=== PATIENT | female | born 1950 | race Caucasian/White ===

== ENCOUNTER 2017-12-05 06:01 | Observation (INO) | payer BC, MEDICARE ==
[2017-12-04 11:31] LABS: BASOPHILS # (AUTO) 0.1 (0.0-0.1); BASOPHILS % 0.7 % (0.0-1.0); EOSINOPHILS # (AUTO) 0.1 (0.0-0.4); EOSINOPHILS % 1.6 % (0.0-6.0); HEMATOCRIT 36.9 % (34.2-44.1); HEMOGLOBIN 12.2 g/dL (12.0-16.0); LYMPHOCYTES # (AUTO) 2.6 (1.0-3.2); LYMPHOCYTES % 34.3 % (18.0-39.1); MEAN CORPUSCULAR HEMOGLOBIN 29.2 pg (28-32); MEAN CORPUSCULAR HGB CONC 33.1 g/dL (31-35); MEAN CORPUSCULAR VOLUME 88.3 fL (81-99); MONOCYTES # (AUTO) 0.7 (0.2-0.8); MONOCYTES % 8.8 % (4.4-11.3); NEUTROPHILS # (AUTO) 4.1 (2.1-6.9); NEUTROPHILS % 54.3 % (38.7-80.0); PLATELET COUNT 268 x10e3/uL (140-360); RED BLOOD COUNT 4.18 x10e6/uL (3.6-5.1); RED CELL DISTRIBUTION WIDTH 12.8 % (11.7-14.4)
[2017-12-04 11:43] LABS: INR 1.04; PARTIAL THROMBOPLASTIN TIME 29.9 seconds (23.8-35.5); PROTHROMBIN TIME 12.8 seconds (11.9-14.5)
[2017-12-04 11:50] LABS: ANION GAP 15.8 mmol/L (8-16); BLOOD UREA NITROGEN 20 mg/dL (7-26); BUN/CREATININE RATIO 24 (6-25); CALCIUM 9.7 mg/dL (8.4-10.2); CARBON DIOXIDE 25 mmol/L (22-29); CHLORIDE 105 mmol/L (98-107); CREATININE, SERUM 0.83 mg/dL (0.57-1.11); EST GLOMERULAR FILTRATION RATE > 60 ML/MIN (60-); GLUCOSE 93 mg/dL (74-118); POTASSIUM 3.8 mmol/L (3.5-5.1); SODIUM 142 mmol/L (136-145)
[~2017-12-05] VITALS: Ht 157.5 cm; Wt 69.0 kg
[~2017-12-05 06:01] MED LIST: ADVIL200 MG PO; ASPIR 8181 MG PO; MELOXICAM7.5 MG PO
[2017-12-05] MEDS ORDERED: CEFAZOLIN SOD 1 GM VIAL ONE (06:19)
[2017-12-05] MEDS ORDERED: GELATIN SPONGE SZ 100 ONE (07:06)
[2017-12-05] MEDS ORDERED: BUPIVACAINE 0.5%/EPI 30 ML SDV INJ ONE (07:06)
[2017-12-05] MEDS ORDERED: THROMBIN FOR SOLN 5,000 UNIT VIAL ONE (07:06)
[2017-12-05] MEDS ORDERED: BACITRACIN 50,000 UNIT VIAL ONE (07:06)
[2017-12-05] MEDS ORDERED: VANCOMYCIN 1GM/NS 250 ML 250 ML ONE (07:19)
[2017-12-05] MEDS ORDERED: LIDOCAINE HCL (LTA) 4 ML SOLN ONE (07:35)
[2017-12-05] MEDS ORDERED: ACETAMINOPHEN 1000 MG/100 ML 100 ML IV ONE (07:36)
[2017-12-05] MEDS: LACTATED RINGER'S 1,000 ML IV SCH ×2 (09:16→17:36)
[2017-12-05] MEDS ORDERED: MAGNESIUM/ALUMINUM/SIMETHICONE 30 ML UDC PO PRN (09:30)
[2017-12-05] MEDS ORDERED: PROMETHAZINE HCL (IM) 25 MG/ML VIAL IM PRN (09:30)
[2017-12-05] MEDS ORDERED: ZOLPIDEM TARTRATE 5 MG TAB PO PRN (09:30)
[2017-12-05] MEDS ORDERED: CARISOPRODOL 350 MG TAB PO PRN (09:30)
[2017-12-05] MEDS ORDERED: HYDROMORPHONE 2MG/ML 2 MG/ML ML IV PRN (09:30)
[2017-12-05] MEDS ORDERED: MORPHINE SULFATE 5 MG/ML VIAL IM PRN (09:30)
[2017-12-05] MEDS ORDERED: ACETAMINOPHEN 325 MG TAB PO PRN (09:30)
[2017-12-05] MEDS ORDERED: IBUPROFEN 200 MG TAB PO SCH (09:30)
[2017-12-05] MEDS ORDERED: ONDANSETRON HCL INJ 2 MG/ML VIAL IV PRN (09:30)
[2017-12-05] MEDS ORDERED: FENTANYL CITRATE/PF 100MCG/2 ML INJ ONE ×2 (09:38→16:44)
[2017-12-05] MEDS ORDERED: IBUPROFEN 400 MG TAB PO PRN (09:45)
[2017-12-05] MEDS ORDERED: MORPHINE SULFATE INJ 4 MG/ML INJ IM PRN (09:45)
[2017-12-05] MEDS ORDERED: VANCOMYCIN 1GM/NS 250 ML 250 ML IV SCH (10:00)
[2017-12-05 10:44] VITALS: BP 137/68
[2017-12-05] MEDS: OXYCODONE/ACETAMINOPHEN 5-325 1 EACH TABLET PO PRN (10:53)
[2017-12-05 11:04] VITALS: BP 137/68
--- NOTE | 2017-12-05 11:27 | Operative Report ---
DATE OF PROCEDURE: December 05, 2017 PREOPERATIVE DIAGNOSIS: L4-5 severe spinal stenosis and disk herniation with radiculopathy, M48.062, M51.16. POSTOPERATIVE DIAGNOSIS: L4-5 severe spinal stenosis and disk herniation with radiculopathy, M48.062, M51.16. PROCEDURES 1. L4 bilateral decompressive laminectomy and L4-5 bilateral medial facetectomies, 25895. 2. L5 bilateral partial decompressive laminectomy and left L4-5 microdiskectomy, 07210. ANESTHESIA: General. INDICATIONS: The patient is a 67-year-old woman, who has previously undergone L5-S1 instrumented fusion by nd. She now presents with L4-5 severe spinal stenosis due to facet and ligamentous hypertrophy and left-sided subligamentous disk herniation symptomatic with left L5 radiculopathy. She was taken to the operating room for a decompression of the L4-5 segment without extension of her fusion. DESCRIPTION OF PROCEDURE: After the induction of general anesthesia, the patient was placed on the operating table in the prone position over a Mook frame. The lumbar region was prepped and draped in a sterile fashion. A preoperative x-ray was obtained. A small midline incision was created. The lumbar fascia was opened along the midline, and subperiosteal dissection was carried out to expose the spinous processes and lamina of L4 and the residual lamina of L5 and the medial aspect of the L4-5 facet joints bilaterally. A 2nd x-ray confirmed correct localization. The spinous process of L4 was resected. A high-speed drill equipped with a 5-mm fawn bur was used to drill the inferior two-thirds of the lamina of L4 and the residual lamina of L5 and the medial aspect of the L4-5 facet joints bilaterally. The markedly hypertrophic ligamentum flavum was then carefully dissected off the dura and resected in a piecemeal fashion until the dura and the L5 traversing nerve roots were fully exposed and decompressed. The disk space was then explored on each side, and subligamentous disk herniation could be palpated on the left side. The posterior annulus of the disk and the posterior longitudinal ligament were incised with a #11 blade on the left side lateral to the L5 nerve root, and the subligamentous portion of the disk was retrieved and removed. The loose contents of the L4-5 disk were conservatively evacuated with a pituitary rongeur. Meticulous hemostasis was secured with bipolar electrocautery. A layer of Gelfoam was placed over the dura. A small Hemovac drain was placed and brought out through a separate stab incision. The wound was closed in multiple layers with #0 and 2-0 Vicryl sutures and 3-0 Monocryl sutures in a subcuticular fashion. Steri-Strips and a dressing were applied. The patient was awakened, extubated, and taken to the postanesthesia care unit in stable condition. No intraoperative complications were encountered. Estimated blood loss was 30 mL. Job#: [id number]
[2017-12-05 14:58] VITALS: BP 118/65
[2017-12-05] MEDS ORDERED: MIDAZOLAM HCL 2 MG/2 ML VIAL ONE (16:44)
[2017-12-05] MEDS ORDERED: SEVOFLURANE INHAL SOLN 250 ML PEN BTL ONE (18:07)
[2017-12-05] MEDS ORDERED: ROCURONIUM BROMIDE 10 MG/ML 5ML VIAL ONE (18:07)
[2017-12-05] MEDS ORDERED: LIDOCAINE HCL 2% LOCAL INJ 5 ML SDV VIAL INJ ONE (18:07)
[2017-12-05] MEDS ORDERED: DEXAMETHASONE SOD PHOS INJ 4 MG/ML VIAL ONE (18:07)
[2017-12-05] MEDS ORDERED: EPHEDRINE SULFATE INJ 50 MG/10 ML SYR ONE (18:07)
[2017-12-05] MEDS ORDERED: NEOSTIGMINE 5 MG/5ML SYR ONE (18:07)
[2017-12-05] MEDS ORDERED: GLYCOPYRROLATE INJ 1MG/ 5 ML SYR ONE (18:07)
[2017-12-05] MEDS ORDERED: PROPOFOL IV EMULSION 10 MG/ML 20 ML VIAL ONE (18:07)
[2017-12-05 20:00] VITALS: BP 111/55
[2017-12-05] MEDS ORDERED: SODIUM CHLORIDE 0.9% 250ML 0 ML ONE (20:05)
[2017-12-05] MEDS: VANCOMYCIN 1GM/NS 250 ML 250 ML IV SCH (20:20)
[2017-12-06 00:50] VITALS: BP 98/50
[2017-12-06] MEDS ORDERED: SODIUM CHLORIDE 0.9% 250ML 250 ML ONE (05:47)
[2017-12-06 06:05] VITALS: BP 110/51
[2017-12-06] MEDS: VANCOMYCIN 1GM/NS 250 ML 250 ML IV SCH (06:07)
[2017-12-06] MEDS: OXYCODONE/ACETAMINOPHEN 5-325 1 EACH TABLET PO PRN (07:23)
[2017-12-06 08:10] VITALS: BP 121/57
[2017-12-06 08:21] VITALS: BP 121/57
[2017-12-06] MEDS ORDERED: MELOXICAM 7.5 MG TAB PO SCH (09:00)
[2017-12-06] MEDS ORDERED: NORCO 7.5-3251 EACH PO (09:16)
[2017-12-06 11:45] VITALS: BP 132/62
== END 2017-12-06 10:39 | disposition home or self-care (01) ==
LOC: OR 06:01 → PACU V 09:17 → IMCU 10:20
PROVIDERS: ADMIT Neurological Surgery; ATTEND Neurological Surgery
DX: M48.062 Spinal stenosis, lumbar region with neurogenic claudication (principal); J45.909 Unspecified asthma, uncomplicated; M81.0 Age-related osteoporosis without current pathological fracture
CPT/HCPCS: 36415; 63047; 63048; 72020; 80048; 85025; 85610; 85730; 86850; 86900; 88304; 93005; G0378 ×2; J1100; J2001; J2250; J2270; J3370 ×2; J3490; J7050; J7120; J0690